=== PATIENT | male | born 1975 | race African-American/Black ===

== ENCOUNTER 2022-02-27 19:45 | Emergency (ER) | payer OTHER ==
[~2022-02-27] VITALS: Ht 170.2 cm; Wt 102.0 kg
[2022-02-27 19:48] VITALS: BP 155/95
[2022-02-27] MEDS ORDERED: sulfamethoxazole/trimethoprim DS (800/160mg) tablet PO ONE (20:35)
[2022-02-27] MEDS ORDERED: SULF1TAB49 PO (20:37)
== END 2022-02-27 20:45 | disposition home or self-care (01) ==
LOC: ER 19:46
DX: L02.611 Cutaneous abscess of right foot (principal)
CPT/HCPCS: 99283